=== PATIENT | female | born 1975 | race Caucasian/White ===

== ENCOUNTER 2020-01-27 12:50 | Emergency (ER) | payer MEDICARE, OTHER ==
[~2020-01-27] VITALS: Ht 157.5 cm; Wt 66.2 kg
[2020-01-27 13:39] LABS: Source, Urine Clean Catch
[2020-01-27 13:46] LABS: Bilirubin, Urine Neg (Neg); Blood, Urine 1+ (Neg); Glucose Qualitative, Urine 4+ (Neg); Ketones, Urine 1+ (Neg); Leukocyte Esterase, Urine 3+ (Neg); Nitrite, Urine Neg (Neg); Protein, Urine 1+ (Neg); Urobilinogen, Urine 1+ (Normal)
[2020-01-27 14:21] LABS: Appearance, Urine Hazy (Clear); Color, Urine Yellow (P-Yellow)
[2020-01-27 14:23] LABS: Bacteria Many /hpf; Squamous Epithelial Cells Many /hpf (Few)
[2020-01-27] MEDS ORDERED: CYCL10 PO (15:35)
[2020-01-27] MEDS ORDERED: CEPH500 PO (15:35)
[2020-01-27] MEDS ORDERED: HYDR1TAB94 PO (15:35)
== END 2020-01-27 15:55 | disposition home or self-care (01) ==
LOC: ER 12:50
PROVIDERS: Physician Assistant
DX: N39.0 Urinary tract infection, site not specified (principal); E11.43 Type 2 diabetes mellitus with diabetic autonomic (poly)neuropathy; K31.84 Gastroparesis; F17.210 Nicotine dependence, cigarettes, uncomplicated; Z88.0 Allergy status to penicillin; Z98.890 Other specified postprocedural states; Z79.899 Other long term (current) drug therapy
CPT/HCPCS: 71046; 81001; 87086; 99283-25